=== PATIENT | female | born 1990 | race Caucasian/White ===

== ENCOUNTER 2016-10-27 07:53 | Emergency (ER) | payer OTHER ==
[~2016-10-27] VITALS: Ht 157.5 cm; Wt 57.0 kg
[2016-10-27 07:56] VITALS: BP 129/82; PULSE 101; RESP 16; TEMP 98.6
[2016-10-27] MEDS ORDERED: JUNETAB PO (08:12)
[2016-10-27] MEDS ORDERED: TRAZ50TA12 PO (08:12)
[2016-10-27] MEDS ORDERED: CLON0.5T PO (08:12)
[2016-10-27] MEDS ORDERED: SODIUM CHLOR 0.9% 1000 ML INJ 1,000 ML IV ONE (08:15)
[2016-10-27] MEDS ORDERED: ONDANSETRON HCL 4 MG/2 ML VIAL IVP ONE (08:15)
[2016-10-27] MEDS ORDERED: SODIUM CHLORIDE 0.9% FLUSH 5 ML FLUSH IVF PRN (08:15)
--- NOTE | 2016-10-27 08:20 | PD ---
HPI Chief Complaint: GI Complaint Time Seen by Provider: 07:58 Travel History International Travel<30 days: No Contact w/Intl Traveler<30days: No Traveled to known affect area: No History of Present Illness HPI The patient was seen and examined in the presence of the nurse. This patient woke up at 3 AM with abdominal pain. Pain was severe. It has waxed and waned since that time. Duration is 5 hours. She has right lower quadrant pain. She has nausea and vomiting with some diarrhea. Had a LEEP procedure 3 weeks ago. Is not . No vaginal bleeding or discharge complaints. No alleviating factors. No ill contacts that ate similar food. PFSH Past Medical History Hx Anticoagulant Therapy: No Anxiety: Yes Cardiovascular Problems: No Chemotherapy: No Cerebrovascular Accident: No Diabetes: No Respiratory: No Influenza Vaccination: Yes ?: Unknown LMP: 10/01/16 Past Surgical History Gynecologic Surgery: Yes Hysterectomy: No Social History Alcohol Use: Yes (OCC) Tobacco Use: No Substance Use: No Allergies-Medications (Allergen,Severity, Reaction): Coded Allergies: No Known Allergies (Unverified , 10/27/16) Reported Meds & Prescriptions Reported Meds & Active Scripts Active Reported Trazodone (Trazodone HCl) 50 Mg Tab 25 Mg PO HS Clonazepam 0.5 Mg Tab 0.5 Mg PO DAILY PRN 10/02 (Norethindrone-Ethinyl Estradiol) 1-20 Mg-Mcg Tab 1 Tab PO DAILY Review of Systems General / Constitutional: No: Fever Eyes: No: Visual changes HENT: No: Headaches Cardiovascular: No: Chest Pain or Discomfort Respiratory: No: Shortness of Breath Gastrointestinal: Positive: Nausea, Vomiting, Diarrhea, Abdominal Pain Genitourinary: No: Dysuria Musculoskeletal: No: Pain Skin: No Rash Neurologic: No: Weakness Psychiatric: No: Depression Endocrine: No: Polydipsia Hematologic/Lymphatic: No: Easy Bruising Physical Exam Narrative GENERAL: Well-nourished, well-developed patient with nausea and abdominal pain. SKIN: Warm and dry. HEAD: Atraumatic. Normocephalic. EYES: Pupils equal and round. No scleral icterus. No injection or drainage. ENT: No nasal bleeding or discharge. Mucous membranes pink and moist. NECK: Trachea midline. No JVD. CARDIOVASCULAR: Regular rate and rhythm. No murmur appreciated. RESPIRATORY: No accessory muscle use. Clear to auscultation. Breath sounds equal bilaterally. GASTROINTESTINAL: Abdomen soft, right lower quadrant is tender but no rebound or guarding, nondistended. Hepatic and splenic margins not palpable. MUSCULOSKELETAL: No obvious deformities. No clubbing. No cyanosis. No edema. NEUROLOGICAL: Awake and alert. No obvious cranial nerve deficits. Motor grossly within normal limits. Normal speech. PSYCHIATRIC: Appropriate mood and affect; insight and judgment normal. Data Data Last Documented VS Vital Signs Date Time Temp Pulse Resp B/P Pulse Ox O2 Delivery O2 Flow Rate FiO2 10/27/16 07:56 98.6 101 16 129/82 Orders Basic Metabolic Panel (Bmp) (10/27/16 08:11) Complete Blood Count With Diff (10/27/16 08:11) Ct Abd/Pel W Iv Contrast(Rout) (10/27/16 08:11) Iv Access Insert/Monitor (10/27/16 08:11) NPO (10/27/16 08:11) Ondansetron Inj (Zofran Inj) (10/27/16 08:15) Sodium Chloride 0.9% Flush (Ns Flush) (10/27/16 08:15) Ed Urine Pregnancytest Poc (10/27/16 08:11) Sodium Chlor 0.9% 1000 Ml Inj (Ns 1000 M (10/27/16 08:15) Iohexol 350 Inj (Omnipaque 350 Inj) (10/27/16 08:45) Promethazine Inj (Phenergan Inj) (10/27/16 10:15) Morphine Inj (Morphine Inj) (10/27/16 10:15) Labs Laboratory Tests Test 10/27/16 08:21 White Blood Count 6.7 TH/MM3 Red Blood Count 4.36 MIL/MM3 Hemoglobin 13.8 GM/DL Hematocrit 40.6 % Mean Corpuscular Volume 93.1 FL Mean Corpuscular Hemoglobin 31.6 PG Mean Corpuscular Hemoglobin 34.0 % Concent Red Cell Distribution Width 12.6 % Platelet Count 184 TH/MM3 Mean Platelet Volume 7.9 FL Neutrophils (%) (Auto) 90.5 % Lymphocytes (%) (Auto) 3.2 % Monocytes (%) (Auto) 5.3 % Eosinophils (%) (Auto) 0.9 % Basophils (%) (Auto) 0.1 % Neutrophils # (Auto) 6.1 TH/MM3 Lymphocytes # (Auto) 0.2 TH/MM3 Monocytes # (Auto) 0.4 TH/MM3 Eosinophils # (Auto) 0.1 TH/MM3 Basophils # (Auto) 0.0 TH/MM3 CBC Comment DIFF FINAL Differential Comment Sodium Level 140 MEQ/L Potassium Level 3.9 MEQ/L Chloride Level 106 MEQ/L Carbon Dioxide Level 26.6 MEQ/L Anion Gap 7 MEQ/L Blood Urea Nitrogen 12 MG/DL Creatinine 0.63 MG/DL Estimat Glomerular Filtration 114 ML/MIN Rate Random Glucose 95 MG/DL Calcium Level 8.2 MG/DL [facility] Medical Decision Making Medical Screen Exam Complete: Yes Emergency Medical Condition: Yes Medical Record Reviewed: Yes Differential Diagnosis Appendicitis, ovarian cystic disease, colitis, gastroenteritis, food poisoning Narrative Course I have reviewed the patient's electronic medical record. IV placed IV Zofran given 1 L normal saline IV given CBC is normal Metabolic profile is normal Urine is negative CT of abdomen and pelvis with IV contrast is normal Gave her dose of morphine and Phenergan when she was still having pain and vomiting after the above treatments. Patient's workup is negative May have some degree of food poisoning or gastroenteritis She looks euvolemic I wrote her some symptom relief medications Expect gradual resolution No clinical suspicion of PID, she does not want pelvic exam. Diagnosis Primary Impression: Abdominal pain Qualified Code: R10.31 - Right lower quadrant abdominal pain Additional Impression: Nausea vomiting and diarrhea Additional Instructions: The patient was advised to follow up with their physician and return if they worsen. The patient was warned about potential sedation for the medications they will receive on prescription. Med/Other Pt SpecificInfo: Prescription(s) given Scripts Oxycodone-Acetaminophen (Percocet)5-325 mg Tab1 Tab PO Q6H PRN (PAIN) #12 TAB Ref 0 Prov:Sesar Pop MD 10/27/16 Promethazine (Phenergan)25 Mg Tab25 Mg PO Q6H PRN (Nausea/Vomiting) #12 TAB Ref 0 Prov:Sesar Pop MD 10/27/16 Ondansetron Odt (Zofran Odt)4 Mg Tab4 Mg SL Q6HR PRN (Nausea/Vomiting) #12 TAB Ref 0 Prov:Sesar Pop MD 10/27/16 Disposition: 01 DISCHARGE HOME Condition: Stable Sesar Pop MD Oct 27, 2016 08:20
[2016-10-27 08:35] LABS: AUTOMATED NEUTROPHIL # 6.1 TH/MM3 (1.8-7.7); BASOPHIL % 0.1 % (0.0-2.0); EOSINOPHIL # 0.1 TH/MM3 (0-0.4); EOSINOPHIL % 0.9 % (0.0-4.0); HEMATOCRIT 40.6 % (35.0-46.0); HEMO FLAGS DIFF FINAL; LYMPH % 3.2 % (9.0-44.0); LYMPHOCYTE # 0.2 TH/MM3 (1.0-4.8); MEAN CELL VOLUME 93.1 FL (80.0-100.0); MEAN CORPUSCULAR HEMOGLOBIN 31.6 PG (27.0-34.0); MONO % 5.3 % (0.0-8.0); NEUT % 90.5 % (16.0-70.0); PLATELET COUNT 184 TH/MM3 (150-450); RED BLOOD COUNT 4.36 MIL/MM3 (4.00-5.30); RED CELL DISTRIBUTION WIDTH 12.6 % (11.6-17.2); WHITE BLOOD COUNT 6.7 TH/MM3 (4.0-11.0)
[2016-10-27] MEDS ORDERED: IOHEXOL 350 MG/ML 10 ML VIAL (for RAD DIAG) IV ONE (08:45)
[2016-10-27 08:53] LABS: BICARBONATE 26.6 MEQ/L (21.0-32.0); POTASSIUM 3.9 MEQ/L (3.5-5.1)
--- NOTE | 2016-10-27 09:05 | RADRPT ---
EXAM DATE/TIME: 10/27/2016 08:43 [facility] COMPARISON: No previous studies available for comparison. INDICATIONS : Diffuse abdominal pain. Nausea and vomiting. IV CONTRAST: 90 cc Omnipaque 350 (iohexol) IV ORAL CONTRAST: No oral contrast ingested. RADIATION DOSE: 5.45 CTDIvol (mGy) MEDICAL HISTORY : None SURGICAL HISTORY : None. ENCOUNTER: Initial ACUITY: 1 day PAIN SCALE: 6/10 LOCATION: Diffuse abdomen. TECHNIQUE: Volumetric scanning of the abdomen and pelvis was performed. Using automated exposure control and ad justment of the mA and/or kV according to patient size, radiation dose was kept as low as reasonably achievable to obtain optimal diagnostic quality images. FINDINGS: LOWER LUNGS: The visualized lower lungs are clear. LIVER: Homogeneous density without lesion. There is no dilation of the biliary tree. No calcified gallston es. SPLEEN: Normal size without lesion. PANCREAS: Within normal limits. KIDNEYS: Normal in size and shape. There is no mass, stone or hydronephrosis. ADRENAL GLANDS: Within normal limits. VASCULAR: There is no aortic aneurysm. BOWEL/MESENTERY: The stomach, small bowel, and colon demonstrate no acute abnormality. There is no free intraperitone al air or fluid. ABDOMINAL WALL: Within normal limits. RETROPERITONEUM: There is no lymphadenopathy. BLADDER: No wall thickening or mass. REPRODUCTIVE: Within normal limits. INGUINAL: There is no lymphadenopathy or hernia. MUSCULOSKELETAL: Within normal limits for patient age. CONCLUSION: 1. Normal examination. Burke Lima MD on October 27, 2016 at 9:01 Board Certified Radiologist. This report was verified electronically.
[2016-10-27] MEDS ORDERED: PROMETHAZINE INJ 25 MG/ML VIAL IM ONE (10:15)
[2016-10-27] MEDS ORDERED: MORPHINE SULFATE 4 MG/ML INJ IV PUSH ONE (10:15)
[2016-10-27] MEDS ORDERED: PERC5TAB12 PO (10:48)
[2016-10-27] MEDS ORDERED: PROM25TA5 PO (10:48)
[2016-10-27] MEDS ORDERED: ZOFR4TAB3 SL (10:48)
== END 2016-10-27 11:20 | disposition home or self-care (01) ==
LOC: NEPE 07:53
DX: R10.31 Right lower quadrant pain (principal); R11.2 Nausea with vomiting, unspecified; R19.7 Diarrhea, unspecified
CPT/HCPCS: 74177; 80048; 84703; 85025; 96372; 96374; 96375; 99284; J2270; J2405; J2550; J7030; Q9967